=== PATIENT | male | born 1950 | race Caucasian/White ===

== ENCOUNTER → 2018-01-16 | Outpatient (CLI) | payer MEDICARE ==
--- NOTE | 2018-01-16 15:39 | Diagnostic Imaging Report ---
PROCEDURE: CT ABDOMEN AND PELVIS WITHOUT CONTRAST TECHNIQUE: At The abdomen and pelvis were scanned utilizing a multidetector helical scanner from the diaphragm to the lesser trochanter after the oral administration of water . No IV contrast was administered per protocol. Coronal and sagittal multiplanar reformations were obtained. COMPARISON: None. INDICATIONS: CALCULUS OF KIDNEY FINDINGS: ABSENCE OF INTRAVENOUS CONTRAST DECREASES SENSITIVITY FOR DETECTION OF FOCAL LESIONS AND VASCULAR PATHOLOGY. LOWER THORAX: Bilateral lower lobe linear opacities, likely represent subsegmental atelectasis or scarring. Calcified pleural plaque in the posteromedial right lower lobe. Atherosclerotic calcification of the coronary arteries. HEPATOBILIARY: Mild hepatic steatosis, predominantly involving hepatic segment IV. No focal lesions. No biliary ductal dilatation. 0.9 cm calcified stone in the gallbladder lumen. No wall thickening or pericholecystic fluid. SPLEEN: No splenomegaly. Calcified granulomata PANCREAS: No focal masses or ductal dilatation. ADRENALS: No adrenal nodules. KIDNEYS/URETERS: Right: Punctate nonobstructing calculi in the superior pole (series 3, images 61 and 63 and coronal images 95 and 96). No other renal or any ureteral calculi. No hydronephrosis or obstruction. Renal scarring in the superior to mid aspect. No other contour abnormalities. Left: No renal or ureteral calculi, hydronephrosis, or obstruction. 2.1 x 2.1 x 2.3 cm fluid density exophytic simple cyst in the inferior pole (series 3, image 89). Multiple areas of cortical scarring are identified. Questionable 2.8 x 2.2 cm fat-containing lesion in the superior pole versus scarring and adjacent perirenal fat (series 3, image 60, and sagittal image 108). No bladder calculi or focal lesions. Mild circumferential bladder wall thickening, which is probably due to underdistention. Prostate is enlarged and contains dystrophic calcifications. PELVIC ORGANS/BLADDER: Unremarkable. PERITONEUM / RETROPERITONEUM: No free air or fluid. LYMPH NODES: No lymphadenopathy. VESSELS: Mild calcification of the distal abdominal aorta GI TRACT: No bowel dilation or evidence of obstruction. BONES AND SOFT TISSUES: No aggressive lytic lesion. Degenerative disc changes in the lower thoracic and lumbosacral spine, worse At L5-S1. Soft tissues are grossly unremarkable. IMPRESSION: 1. Punctate nonobstructing calculi in the superior pole of the right kidney. No left renal, bilateral ureteral or bladder calculi, hydronephrosis, or obstruction. 2. Questionable 2.8 cm exophytic) fat-containing lesion in the superior pole of the left kidney (most consistent with an angiomyolipoma versus scarring and adjacent perirenal fat. 3. Mild circumferential bladder wall thickening, which may be partly underdistention, however, bladder outlet obstruction from enlarged prostate is also considered. 4. Calcified pleural plaque in the posteromedial right lower lobe suggests prior exposure to asbestos. Nolan York M.D. Dictated by: Nolan York M.D. on 01/16/2018 at 15:39 Electronically approved by: Nolan York M.D. on 01/16/2018 at 15:39
== END ==
LOC: CT 13:56
PROVIDERS: ATTEND Urology
DX: R94.31 Abnormal electrocardiogram [ECG] [EKG] (principal)
CPT/HCPCS: 74176; 93306

== ENCOUNTER → 2018-04-06 | Day surgery (SDC) | payer MEDICARE ==
[2018-04-03 14:46] LABS: BASOPHILS % 0.2 % (0.0-1.0); EOSINOPHILS # (AUTO) 0.1 (0.0-0.4); EOSINOPHILS % 0.9 % (0.0-6.0); HEMATOCRIT 42.8 % (38.2-49.6); HEMOGLOBIN 13.9 g/dL (14.0-18.0); LYMPHOCYTES # (AUTO) 1.2 (1.0-3.2); LYMPHOCYTES % 13.9 % (18.0-39.1); MEAN CORPUSCULAR HEMOGLOBIN 29.1 pg (28-32); MEAN CORPUSCULAR HGB CONC 32.5 g/dL (31-35); MEAN CORPUSCULAR VOLUME 89.5 fL (81-99); MONOCYTES # (AUTO) 0.9 (0.2-0.8); NEUTROPHILS # (AUTO) 6.4 (2.1-6.9); NEUTROPHILS % 74.8 % (38.7-80.0); PLATELET COUNT 235 x10e3/uL (140-360); RED BLOOD COUNT 4.78 x10e6/uL (4.3-5.7); RED CELL DISTRIBUTION WIDTH 13.7 % (11.7-14.4)
[2018-04-03 15:01] LABS: ANION GAP 14.9 mmol/L (8-16); BLOOD UREA NITROGEN 25 mg/dL (7-26); BUN/CREATININE RATIO 21 (6-25); CALCIUM 9.9 mg/dL (8.4-10.2); CARBON DIOXIDE 27 mmol/L (22-29); CHLORIDE 105 mmol/L (98-107); CREATININE, SERUM 1.19 mg/dL (0.72-1.25); EST GLOMERULAR FILTRATION RATE > 60 ML/MIN (60-); GLUCOSE 91 mg/dL (74-118); POTASSIUM 4.9 mmol/L (3.5-5.1); SODIUM 142 mmol/L (136-145)
--- NOTE | 2018-04-03 16:12 | Diagnostic Imaging Report ---
PROCEDURE: Frontal and lateral views of the chest. COMPARISON: None. INDICATIONS: PRE OP LEFT FOOT SURGERY FINDINGS: Lines/tubes: None. Lungs: The lungs are well inflated. 3-4 mm nodular density projecting over the anterior aspect of the right third rib on the frontal view.. There is no evidence of pneumonia or pulmonary edema. Pleura: There is no pleural effusion or pneumothorax. Pleural thickening in the right lateral costophrenic angle Heart and mediastinum: Cardiac silhouette is unremarkable. Pulmonary vasculature is normal. Bones: No acute bony abnormality. Degenerative changes in the thoracic spine. Midline sternotomy wires. IMPRESSION: 1. No acute cardiopulmonary abnormalities. 2. 3-4 mm nodular density projecting over the anterior aspect of right third rib on the frontal view may represent a pulmonary nodule or calcified granuloma. Prior films, if available, would be helpful for comparison. If no prior films can be obtained, recommend chest PA and lateral in 6 months to document stability. Nolan York M.D. Dictated by: Nolan York M.D. on 04/03/2018 at 16:14 Electronically approved by: Nolan York M.D. on 04/03/2018 at 16:14
[~2018-04-06] MED LIST: ACETAMINOPHEN 1000 MG/100 ML IV ONE; ACIDOPHILUS1 EAC1 PO; ASPIR 8181 MG PO; BUPIVACAINE HCL 0.5% INJ 30 ML VIAL INJ ONE; CEFAZOLIN SOD 2 GM/D5W 50ML 50 ML IV ONE; DEXAMETHASONE SOD PHOS INJ 4 MG/ML VIAL ONE; EPHEDRINE SULFATE INJ 50 MG/10 ML SYR ONE; FENTANYL CITRATE/PF 100MCG/2 ML INJ ONE; FLOMAX0.4 MG PO; KETOROLAC TROMETHAMINE 30 MG/ML VIAL ONE; KRILL OIL 1,001 EACH PO; LOSARTAN POTASS25 MG PO; METOPROLOL TART25 MG PO; NEOSTIGMINE 1 MG/ML 10ML VIAL ONE; ONDANSETRON HCL INJ 2 MG/ML VIAL ONE; PRAVASTATIN SOD40 MG PO; PROPOFOL IV EMULSION 10 MG/ML 20 ML VIAL ONE; SEVOFLURANE INHAL SOLN 250 ML PEN BTL ONE; VIT C PO; VIT D2 PO
--- OUTSIDE RECORDS SUMMARY | 2018-04-06 05:31 | XMS REPORT ---
Author Author [facility] Address Unknown Phone Unavailable Care Team Providers Care Punch Operator Name Role Phone JUAN CARLOS SUAZO Unavailable Unavailable HAMPEL, ALESSANDRA Unavailable Unavailable Problems This patient has no known problems. Allergies, Adverse Reactions, Alerts This patient has no known allergies or adverse reactions. Medications This patient has no known medications. Results Test Description Test Time Test Comments Text Results Atomic Results Result Comments CHEST 2 VIEWS [place] [address] Patient Name: ISABELA YU MR #: [id number] : 1950 Age/Sex: 67/M Req # : [id number] [facility] Physician: Ordered by: JUAN CARLOS SUAZO DPM Report #: [id number] Location: OR Room/Bed: Procedure: [id number] DX/CHEST 2 VIEWS Exam Date: 04/03/18 Exam Time: 1445 REPORT STATUS: Signed PROCEDURE: Frontal and lateral views of the chest. COMPARISON: None. INDICATIONS: PRE OP LEFT FOOT SURGERY FINDINGS: Lines/tubes: None. Lungs: The lungs are well inflated. 3-4 mm nodular density projecting over the anterior aspect of the right third rib on the frontal view.. There is no evidence of pneumonia or pulmonary edema. Pleura: There is no pleural effusion or pneumothorax. Pleural thickening in the right lateral costophrenic angle Heart and mediastinum: Cardiac silhouette is unremarkable. Pulmonary vasculature is normal. Bones: No acute bony abnormality. Degenerative changes in the thoracic spine. Midline sternotomy wires. IMPRESSION: 1. No acute cardiopulmonary abnormalities. 2. 3-4 mm nodular density projecting over the anterior aspect of right third rib on the frontal view may represent a pulmonary nodule or calcified granuloma. Prior films, if available, would be helpful for comparison. If no prior films can be obtained , recommend chest PA and lateral in 6 months to document stability. Marybel York M.D. Dictated by: Marybel York M.D. on 2017 at 16:14 Electronically approved by: Marybel York M.D. on at 16:14 Dictated By: MARYBEL YOKR MD 13 Transcribed By: ROGELIO on 04/03/181613 COPY TO: JUAN CARLOS SUAZO DPM CT ABDOMEN/PELVIS WO [place] [address] Patient Name: ISABELA YU MR #: [id number] : 1950 Age/Sex: 67/M Req #: [id number] Physician: Ordered by: ALESSANDRA SORIANO MD Report #: [id number] Location: CT Room/Bed: Procedure: [id number] CT/CT ABDOMEN/PELVIS WO Exam Date: 01/16/18 Exam Time: 1430 REPORT STATUS: Signed PROCEDURE: CT ABDOMEN AND PELVIS WITHOUT CONTRAST TECHNIQUE: At The abdomen and pelvis were scanned utilizing a multidetector helical scanner from the diaphragm to the lesser trochanter after the oral administration of water . No IV contrast was administered per protocol. Coronal and sagittal multiplanar reformations were obtained. COMPARISON: None. INDICATIONS: CALCULUS OF KIDNEY FINDINGS: ABSENCE OF INTRAVENOUS CONTRAST DECREASES SENSITIVITY FOR DETECTION OF FOCAL LESIONS AND VASCULAR PATHOLOGY. LOWER THORAX: Bilateral lower lobe linear opacities, likely represent subsegmental atelectasis or scarring. Calcified pleural plaque in the posteromedial right lower lobe. Atherosclerotic calcification of the coronary arteries. HEPATOBILIARY: Mild hepatic steatosis, predominantly involving hepatic segment IV. No focal lesions. No biliary ductal dilatation. 0.9 cm calcified stone in the gallbladder lumen. No wall thickening or pericholecystic fluid. SPLEEN: No splenomegaly. Calcified granulomata PANCREAS: No focal masses or ductal dilatation. ADRENALS: No adrenal nodules. KIDNEYS/URETERS: Right: Punctate nonobstructing calculi in the superior pole (series 3, images 61 and 63 and coronal images 95 and 96). No other renal or any ureteral calculi. No hydronephrosis or obstruction. Renal scarring in the superior to mid aspect. No other contour abnormalities. Left: No renal or ureteral calculi, hydronephrosis, or obstruction. 2.1 x 2.1 x 2.3 cm fluid density exophytic simple cyst in the inferior pole (series 3, image 89). Multiple areas of cortical scarring are identified. Questionable 2.8 x 2.2 cm fat-containing lesion in the superior pole versus scarring and adjacent perirenal fat (series 3, image 60 , and sagittal image 108). No bladder calculi or focal lesions. Mild circumferential bladder wall thickening, which is probably due to underdistention. Prostate is enlarged and contains dystrophic calcifications. PELVIC ORGANS/BLADDER: Unremarkable. PERITONEUM / RETROPERITONEUM: No free air or fluid. LYMPH NODES: No lymphadenopathy. VESSELS: Mild calcification of the distal abdominal aorta GI TRACT: No bowel dilation or evidence of obstruction. BONES AND SOFT TISSUES: No aggressive lytic lesion. Degenerative disc changes in the lower thoracic and lumbosacral spine, worse At L5-S1. Soft tissues are grossly unremarkable. IMPRESSION: 1. Punctate nonobstructing calculi in the superior pole of the right kidney. No left renal, bilateral ureteral or bladder calculi, hydronephrosis, or obstruction. 2. Questionable 2.8 cm exophytic) fat- containing lesion in the superior pole of the left kidney (most consistent with an angiomyolipoma versus scarring and adjacent perirenal fat. 3. Mild circumferential bladder wall thickening, which may be partly underdistention , however, bladder outlet obstruction from enlarged prostate is also considered. 4. Calcified pleural plaque in the posteromedial right lower lobe suggests prior exposure to asbestos. Marybel York M.D. Dictated by: Marybel York M.D. on 01/16/2018 at 15:39 Electronically approved by: Marybel York M.D. on 01/16/2018 at 15:39 Dictated By: MARYBEL YORK MD 1539 Transcribed By: ROGELIO on 01/16/18 1539 COPY TO: ALESSANDRA SORIANO MD
--- NOTE | 2018-04-06 18:41 | Operative Report ---
DATE OF PROCEDURE: April 06, 2018 PREOPERATIVE DIAGNOSES 1. Hallux abductor valgus deformity, left foot. 2. Rigidly contracted hammertoe 2nd digit, left foot. 3. 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 : TITLE OF OPERATION: 1. Modification and the excision of tarsal coalition, left foot. 2. Modified Deangelo bunionectomy, left foot. 3. Arthrodesis 2nd digit, left foot. 4. Cecilio osteotomy 2nd metatarsal, left foot with fixation. PROCEDURE IN DETAIL: The patient was taken to the operating room in a mildly sedated state and placed upon the operating table in the supine position. Following the induction of general anesthetic, the left lower extremity is elevated to 60 degrees to exsanguinate before inflating the pneumatic thigh tourniquet to 350 mmHg for hemostasis. Left lower extremity was then placed on the operating table prior to performing the following procedure. Procedure #1: Excision of tarsal coalition of the left foot. A linear longitudinal incision made overlying the dorsomedial aspect of the tarsometatarsal junction of the left foot. The incision was deepened via sharp and blunt dissection. Large capsular adhesions as well as bony prominences were noted overlying the tarsal coalition. Osteotome and mallet were used to free those adhesions. The surrounding and underlying tissue was arthritic and debrided as well as to create a more normal functioning of the tarsometatarsal joint. The area was then irrigated with copious amounts of sterile saline solution. Deep closure and capsular repair with 3-0 Vicryl. Subcutaneous closure with 4-0 Vicryl and skin closure with 4-0 nylon. Attention was then directed to the 1st metatarsal for modified Deangelo bunionectomy of the left foot. Linear longitudinal incision was made overlying the dorsomedial aspect of the 1st metatarsophalangeal joint of the left foot. The incision was deepened via sharp and blunt dissection down to the level of dorsal capsular structure. Care was taken to identify and retract all vital structures encountered. The head of the 1st metatarsal was delivered into the surgical site and remodeled utilizing oscillating saw. Conjoined tendon of the adductor hallucis muscle was identified and tenotomized. A [id number]-[id number] V osteotomy was made with apex distally and base proximally to allow for relative shift lateral-salazar of the more proximal segment, which was then impacted and stabilized with 2 cortical bone screws. The medial eminence was further remodeled with oscillating saw and rotary bur. The area after irrigation was closed with 3-0 Vicryl and 4-0 nylon. The areas of surgery were then blocked with 0.5 Marcaine, Decadron LA. Attention was then directed to the elongated plantar flexed arthritic 2nd metatarsal of the left foot. Linear incision was made overlying the metatarsophalangeal joints. Capsule tendon balancing procedure was performed. The 2nd digit was dorsal flexed and contracted over the 2nd metatarsal. A Cecilio osteotomy was placed and the bone shifted proximal salazar. The head shifted proximal on the more proximal segment. Impacted and stabilized with 2 cortical bone screws. Attention was then directed to the 2nd digit for arthrodesis. Two converging semi-elliptica incisions were made overlying the 2nd digital contracture at the proximal interphalangeal joint. This elliptical skin wedge was resected and the head of the proximal phalanx delivered into the surgical site, shortened and remodeled utilizing a combination of cup and cone reamers and oscillating saw. The bone was fitted for appropriate reapproximation and then a cannulated device was inserted. This having been accomplished, the 2nd digit was then in normal alignment and compressed. The area was irrigated. Deep closure with 3-0 Vicryl. Skin closure with 4-0 nylon. The areas of surgery were then closed with the appropriate dressing. Posterior splint was applied. Fluoroscopy was used throughout the case and final images obtained. Patient tolerated all procedures well including modified Deangelo bunionectomy, arthrodesis of the 2nd digit of the left foot, a Cecilio osteotomy of the 2nd digit of the left foot with fixation and excision of the tarsal coalition. Patient will return to see me within 1 week postoperatively. Job#: [id number]
== END | disposition home or self-care (01) ==
LOC: OR 05:29
PROVIDERS: ATTEND Podiatrist Foot Surgery
DX: M20.12 Hallux valgus (acquired), left foot (principal); M20.42 Other hammer toe(s) (acquired), left foot; M21.272 Flexion deformity, left ankle and toes; M19.072 Primary osteoarthritis, left ankle and foot; E11.9 Type 2 diabetes mellitus without complications; G47.33 Obstructive sleep apnea (adult) (pediatric); I10 Essential (primary) hypertension; E78.5 Hyperlipidemia, unspecified; Z91.010 Allergy to peanuts; Z01.810 Encounter for preprocedural cardiovascular examination; Z01.812 Encounter for preprocedural laboratory examination; Z01.818 Encounter for other preprocedural examination; Z79.82 Long term (current) use of aspirin; Z79.84 Long term (current) use of oral hypoglycemic drugs
CPT/HCPCS: 28116; 28285; 28296; 28308; 36415; 71046; 80048; 85025; 93005; J1100; J1885; J2405; J2710; 76001

== ENCOUNTER → 2018-05-17 | Outpatient (CLI) | payer MEDICARE ==
[~2018-05-17] MED LIST changes: -ACETAMINOPHEN 1000 MG/100 ML IV ONE; -BUPIVACAINE HCL 0.5% INJ 30 ML VIAL INJ ONE; -CEFAZOLIN SOD 2 GM/D5W 50ML 50 ML IV ONE; -DEXAMETHASONE SOD PHOS INJ 4 MG/ML VIAL ONE; -EPHEDRINE SULFATE INJ 50 MG/10 ML SYR ONE; -FENTANYL CITRATE/PF 100MCG/2 ML INJ ONE; -KETOROLAC TROMETHAMINE 30 MG/ML VIAL ONE; -NEOSTIGMINE 1 MG/ML 10ML VIAL ONE; -ONDANSETRON HCL INJ 2 MG/ML VIAL ONE; -PROPOFOL IV EMULSION 10 MG/ML 20 ML VIAL ONE; -SEVOFLURANE INHAL SOLN 250 ML PEN BTL ONE
--- NOTE | 2018-05-17 10:15 | Diagnostic Imaging Report ---
PROCEDURE:US RETROPERITONEAL ( KIDNEY ). COMPARISON:None. INDICATIONS:FOLLOW UP RENAL MASS AND COMPARRE TO CT TECHNIQUE:Ultrasound examination was performed of the kidneys and bladder. FINDINGS: Right kidney: Right kidney measures up to 12 cm. No evidence of hydronephrosis. Renal echogenicity is unremarkable. There is a punctate right upper pole renal stone. No evidence of renal mass. Simple appearing right sided renal cyst. Left kidney: Left kidney measures up to a 9.7 cm. No evidence of renal mass. No sonographic correlate for left upper pole renal findings demonstrated on prior CT. Simple appearing left-sided renal cysts are present. No evidence of hydronephrosis. The echogenicity is unremarkable. No evidence of renal stone. BLADDER: Mild circumferential bladder wall thickening, measuring up to 4 mm. Enlarged prostate measuring up to 4.5 cm. CONCLUSION: NO SONOGRAPHIC EVIDENCE OF LEFT SIDED RENAL MASS. NO SONOGRAPHIC CORRELATE FOR LEFT UPPER POLE RENAL FINDINGS DESCRIBED ON PRIOR CT ON 01/16/18. PUNCTATE RIGHT UPPER POLE NON-OBSTRUCTING RENAL STONE. MILD CIRCUMFRENTIAL BLADDER WALL THICKENING WHICH MAY REFLECT UNDERDISTENSION OR BLADDER OUTLET OBSTRUCTION FROM ENLARGED PROSTATE. DICTATED BY: ELMER FROST M.D. ON 05/17/2018 AT 10:20 ELECTRONICALLY APPROVED BY: ELMER FROST M.D. ON 05/17/2018 AT 10:20
== END ==
LOC: US 08:24
PROVIDERS: ATTEND Urology
DX: R81 Glycosuria (principal); L72.3 Sebaceous cyst
CPT/HCPCS: 76770

== ENCOUNTER → 2019-07-15 | Outpatient (CLI) | payer MEDICARE, OTHER | LOC: RAD 10:24 | PROVIDERS: ATTEND Family Medicine | DX: R42 Dizziness and giddiness (principal) | CPT/HCPCS: 93306 ==

== ENCOUNTER → 2019-09-03 | Outpatient (CLI) | payer OTHER | LOC: DX 10:34 | PROVIDERS: ATTEND Family Medicine | DX: R13.10 Dysphagia, unspecified (principal) | CPT/HCPCS: 74230 ==

== ENCOUNTER 2019-10-01 10:31 | Outpatient (RCR) | payer MEDICARE, OTHER ==
--- NOTE | 2019-10-01 14:46 | NUR ---
Clinical Swallow Evaluation/Initial Treatment Session Patient is a 69 year old male with diagnosis of dysphagia. Pt participated in a modified barium swallow study on 09/03/19. Pt presented with mild to moderate pharyngeal dysphagia c/b consistent premature spillage over the base of tongue, intermittent aspiration of multiple consistencies, and consistent pharyngeal residue after the swallow. Dysphagia was judged to be secondary to decreased hyolaryngeal constriction, decreased pharyngeal constriction during the swallow, and decreased coordination of the swallow. Pt also had complaints that were consistent with laryngopharyngeal reflux (LPR), including change in vocal quality, dry cough, and constant throat clearing. Recommendation was made for dysphagia therapy to increase strength and coordination of swallow. Patient was seen today in the outpatient clinic for initial treatment of Neuromuscular Electrical Stimulation (NMES) with VitalStim Therapy and traditional dysphagia therapy with pharyngeal exercises. Pt was seen with no family present. Oral motor exam revealed function that was grossly within normal limits. Patient tolerated room air. Hearing appeared to be WFL. Patient reported no change in his swallow skills since the modified barium swallow study. Pt confirmed that he continues to choke and cough intermittently during meal times. Provided extensive education re: need for therapy, purpose of exercises and NMES, and future plan of care. Pt indicated understanding. Pt was given water and hard candy. Pt was instructed to take small bites/sips and swallow hard, feeling all the muscles in his throat contract. Placement 3b was used to target the mylohyoid muscle, the anterior belly of the digastric muscle, the sternohyoid muscle, the omohyoid muscle, the geniohyoid muscle, and the middle pharyngeal constrictors. Channel 1 of the electrodes was aligned horizontally just above the hyoid bone and channel 2 of the electrodes was aligned horizontally at the level of the thyroid notch. This placement was used to improve base of tongue strength, pharyngeal constriction, and UES function. Pt initially tolerated 5.0 mA, but as the session progressed pt tolerated 14.0 mA. Pt received 45 minutes of stimulation. Cough noted X 1. During NMES an exercise program was presented, demonstrated, and discussed. Pt completed the exercises with moderate assistance. A home program was assigned. Pt verbalized understanding of the home exercise program. Education provided as indicated. All questions were answered. Pt stated that it would be better for his work schedule to attend treatment twice per week. Impressions: Pt tolerated initial session of NMES well. He continues to report and demonstrate s/s of aspiration during meals which significantly interferes with his quality of life. Pt is an excellent candidate for dysphagia exercises and NMES for improvement of strength and coordination of swallow. Recommendations: 1.Dysphagia therapy to include traditional exercises and NMES 2X/week for 6 weeks for a total of 12 treatment sessions 2.Home exercise program 3.Repeat MBS in 6 weeks with new goals to be determined at that time. Prison Goal: Pt will tolerate least restrictive diet without s/s of aspiration as judged by an objective evaluation. Short Term Goals: 1.Pt will complete 3 repetitions of a set of dysphagia exercises to improve laryngeal elevation, base of tongue retraction, and laryngeal closure, 10 repetitions per exercise, with minimal cues. 2.Pt will tolerate NMES for 45 60 minutes with no clinical s/s of aspiration to improve strength of pharyngeal constrictors, hyolaryngeal excursion, and safety with po intake. 3.Pt will complete home dysphagia exercise program targeting laryngeal elevation, base of tongue strength, and cricopharyngeal function independently. 4.Pt will follow aspiration precautions with independence. 5.Pt will participate in a repeat Modified Barium Swallow study to objectively re-assess swallow safety and function and determine safest diet. Cristel Lux M.A. CCC-TELEMARKETER Date of Session: 10/01/19 Dysphagia Evaluation X 64 minutes JESSEE NOMS Rating for Swallowing: Level 6
== END 2019-10-05 ==
LOC: ST 10:31
PROVIDERS: ATTEND Family Medicine
DX: R13.13 Dysphagia, pharyngeal phase (principal); K21.9 Gastro-esophageal reflux disease without esophagitis

== ENCOUNTER → 2024-11-04 | Outpatient (REF) | payer MEDICARE | LOC: US 09:46 | PROVIDERS: ATTEND Urology | DX: N28.1 Cyst of kidney, acquired (principal) | CPT/HCPCS: 76770; 76857 ==

== ENCOUNTER → 2024-12-31 | Outpatient (REF) | payer MEDICARE | LOC: CT 13:44 | PROVIDERS: ATTEND Urology | DX: N20.0 Calculus of kidney (principal); R35.1 Nocturia; N28.1 Cyst of kidney, acquired; N18.9 Chronic kidney disease, unspecified; R39.14 Feeling of incomplete bladder emptying | CPT/HCPCS: 74176 ==